=== PATIENT | female | born 1970 | race Asian ===

== ENCOUNTER 2023-01-07 06:26 | Emergency (ER) | payer OTHER, SELFPAY ==
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
[2023-01-07 06:38] VITALS: BP 131/89; PULSE 80; RESP 18; TEMP 37.1; O2SAT 96
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
[2023-01-07] MEDS: KETOROLAC 30 MG/ML VIAL (*BKC) IM (07:30)
--- NOTE | 2023-01-07 09:20 | PC.NURSE ---
neuro-circ checks to distal extremities x4 wnl. arom noted to same. resp even and non-labored. denies nausea. gcs-15. A&Ox3. pt calling family to come pick her up
[2023-01-07 09:24] VITALS: BP 145/92; PULSE 83; RESP 18; O2SAT 100
== END 2023-01-07 09:25 | disposition home or self-care (01) ==
PROVIDERS: Emergency Provider Internal Medicine Critical Care Medicine
DX: M54.9 Dorsalgia, unspecified (principal); R07.89 Other chest pain; V49.40XA Driver injured in collision with unspecified motor vehicles in traffic accident, initial encounter
CPT/HCPCS: 71045; 72070; 72100; 96372; 99284; J1885

== ENCOUNTER 2024-06-10 17:09 | Emergency (ER) | payer SELFPAY ==
[2024-06-10 17:16] VITALS: BP 141/107; PULSE 96; RESP 20; TEMP 36.8; O2SAT 98
[2024-06-10 17:30] VITALS: BP 138/89; PULSE 92; RESP 16; O2SAT 97
[2024-06-10 17:42] LABS: Basophils Absolute Auto 0.05 K/mm3 (0.00-0.10); Basophils Percent Auto 0.9 % (0.0-1.0); Eosinophils Absolute Auto 0.23 K/mm3 (0.02-0.50); Eosinophils Percent Auto 3.9 % (1.0-6.0); Hematocrit 35.7 % (35.0-49.0); Hemoglobin 10.3 g/dL (12.0-15.0); Immature Granulocyte Absolute 0.01 K/mm3 (0.00-0.00); Immature Granulocyte Percent A 0.2 % (0.0-0.0); Lymphocytes Absolute Auto 2.11 K/mm3 (1.10-4.50); Lymphocytes Percent Auto 36.1 % (18.0-42.0); Mean Corpuscular HGB Conc 28.9 g/dL (32-36); Mean Corpuscular Hemoglobin 23.7 pg (27.0-31.0); Mean Corpuscular Volume 82.3 fL (78.0-102.0); Mean Platelet Volume 9.7 fl (9.2-11.8); Monocytes Absolute Auto 0.44 K/mm3 (0.10-0.90); Monocytes Percent Auto 7.5 % (2.0-11.0); Neutrophils Percent Auto 51.4 % (50.0-70.0); Platelet Count Result 257 K/mm3 (150-420); Red Blood Count 4.34 M/mm3 (4.20-5.40); Red Cell Distribution Width 18.1 % (11.6-14.4); White Blood Count 5.8 K/mm3 (4.8-10.8)
--- NOTE | 2024-06-10 17:45 | ED.ALCOHOL ---
HPI - Alcohol General Chief Complaint: Psychiatric Symptoms Stated Complaint: ETOH, SI Time Seen by Provider: 06/10/24 17:16 Source: patient and EMS Mode of arrival: EMS Limitations: no limitations History of Present Illness HPI narrative: 53 years old white female came to the ED by ambulance from home because did not show up for work today, her boss called 911 concerning about her safety . On arrival to the ED patient is awake, alert and oriented x4, Denied any suicidal or homicidal ideation.she is telling me that she drinks 1 pt of alcohol every night, last night had a little bit more than usual and called off at her work, it seemed like [employer] did not get the message, because did not show up for work this morning 911 was called. Patient lives in a motel since 2020, did not pay her bill for the last 14 months, she feels sad and stressed about her financial situation. She is concerned about losing her place to live Patient denies smoking cigarettes or using drugs. Patient denies any history of depression or suicide in the past. Patient reports that she would never ever harm herself she is coward to do that. She is telling me she agreed to come to the ED by ambulance because she does not like resist authorities. Related Data Allergies Allergy/AdvReac Type Severity Reaction Status Date / Time No Known Allergies Allergy Verified 01/07/23 06:38 Review of Systems Review of Systems: All systems reviewed & are unremarkable except as noted in HPI and below PMFSH Past Medical History Medical History Sciatica Exam Narrative: General appearance: Well-developed, well-nourished Skin: Normal color Head: Normocephalic, nontraumatic Eyes: Clear conjunctiva ENT: Oropharynx normal, ears normal, nose normal Neck: Supple, nontender Chest and respiratory: Airway patent, no respiratory distress, no accessory muscle use Heart: Regular rate/rhythm Abdomen: Soft, nontender, no organomegaly, quiet bowel sounds Vascular: Normal peripheral pulses, normal capillary refill. Musculoskeletal: Normal range of motion, nontender back Neurologic: Alert and oriented ?3, [employer] is normal as tested, no gross motor deficit Course Vital Signs Vital signs: Vital Signs Temperature 36.8 C 06/10/24 17:16 Pulse Rate 96 06/10/24 17:16 Respiratory Rate 20 06/10/24 17:16 Blood Pressure 141/107 H 06/10/24 17:16 Pulse Oximetry 98 06/10/24 17:16 Oxygen Delivery Room Air 06/10/24 17:16 Temperature 36.8 C 06/10/24 17:16 Pulse Rate 96 06/10/24 17:16 Respiratory Rate 20 06/10/24 17:16 Blood Pressure 141/107 H 06/10/24 17:16 Pulse Oximetry 98 06/10/24 17:16 Oxygen Delivery Room Air 06/10/24 17:16 MDM - Alcohol MDM Narrative Medical decision making narrative: Patient came to the ED by ambulance because did not show up for work this morning, her post got worried and call 911. Patient denies any suicidal or homicidal ideation. Just stressed and anxious about losing her place to live. Vital signs on arrival are stable Physical examination showed no significant abnormalities. Patient is awake, alert oriented x4 denying any suicidal or homicidal ideation Differential diagnosis include stress, anxiety, depression, alcohol dependence Blood workup today showed alcohol level of 250, elevated liver enzymes secondary to alcohol abuse, negative urine drug screen, otherwise insignificant. , EKG arrival showed sinus rhythm 80 beats per minute otherwise normal EKG. Patient was ambulatory in the ED back and forth to the bathroom with steady gait since arrival to the emergency room until
[2024-06-10] MEDS: SODIUM CHLORIDE 0.9% IV 1,000 ML 999 ML IV CONT (17:59)
[2024-06-10 18:00] VITALS: BP 149/91; PULSE 93; RESP 17; O2SAT 99
[2024-06-10 18:02] LABS: Appearance Urine Clear (Clear); Bilirubin Urine Negative (Negative); Color Urine Light Yellow (Yellow); Glucose Urine UA Negative (Negative); Ketones Urine Negative (Negative); Leukocyte Esterase Ur Trace LEU/UL (Negative); Nitrate Urine Negative (Negative); Protein Urine Negative (Negative); Specific Grav Ur 1.015 (1.010-1.020); Urobilinogen Urine 0.2 mg/dL (0.2-1.0)
[2024-06-10 18:03] LABS: Add Urine Microscopic? YES; Bacteria Urine Trace /hpf; Blood Urine Trace-Lysed (Negative); RBC Urine 0-2 /hpf (0-2); Squamous Epithelial Cell Urine Few /hpf (Few); WBC Urine 0-3 /hpf (0-3)
[2024-06-10 18:05] LABS: Alanine Aminotransferase 201 U/L (14-59); Albumin Level 3.4 g/dL (3.4-5.0); Alkaline Phosphatase 99 U/L (46-116); Anion Gap 11 mmol/L (4-12); Aspartate Amino Transferase 187 U/L (15-37); Bilirubin,Total 0.2 mg/dL (0.00-1.00); Blood Urea Nitrogen 9 mg/dL (7-18); Calcium 8.8 mg/dL (8.5-10.1); Carbon Dioxide 25 mmol/L (21-32); Chloride 102 mmol/L (98-108); Estimated CRCL calculation 88 ml/min; Estimated Glomerular Filt Rate > 60; Glucose 85 mg/dL (70-99); Osmolality Calculated 283 mOsm/kg (285-295); Potassium 3.8 mmol/L (3.5-5.1); Salicylate 1.2 mg/dL (2.8-20.0); Sodium 138 mmol/L (136-145); Thyroid Stimulating Hormone 1.19 uIU/mL (0.36-3.74); Total Protein 7.4 g/dL (6.4-8.2)
[2024-06-10 18:07] LABS: Acetaminophen < 2 ug/mL (10-30); Ethanol 250 mg/dL (0-6)
[2024-06-10 18:15] LABS: Amphetamine Screen Urine Negative (Negative); Barbiturate Screen Urine Negative (Negative); Benzodiazepines Screen Urine Negative (Negative); Cannabinoid Screen Urine Negative (Negative); Cocaine Screen Urine Negative (Negative); Methadone Screen Urine Negative (Negative); Opiate Screen Urine Negative (Negative); Phencyclidine Screen Urine Negative (Negative); Pregnancy On Board Control Positive; Urine Pregnancy Test Negative
[2024-06-10 18:31] VITALS: BP 137/78; PULSE 85; RESP 17; TEMP 36.8; O2SAT 100
--- NOTE | 2024-06-10 18:31 | PC.NURSE ---
Patient has positive ETOH Cameron scale not able to be completed prior to patient's discharge. ERP Is aware and feels patient is at no risk for discharge.
== END 2024-06-10 18:31 | disposition home or self-care (01) ==
PROVIDERS: Emergency Provider Emergency Medicine
DX: F10.20 Alcohol dependence, uncomplicated (principal); Y90.8 Blood alcohol level of 240 mg/100 ml or more; F32.A Depression, unspecified
CPT/HCPCS: 36415; 80053; 80307; 81001; 81025; 84443; 85025; 96360; 99283; J7030